=== PATIENT | male | born 2005 | race Caucasian/White ===

== ENCOUNTER 2024-05-23 08:46 | Inpatient (IN) | payer OTHER ==
[2024-05-23] VITALS (10 sets, daily range): BP systolic 130–143; BP diastolic 70–81; PULSE 96–108; RESP 18–24; TEMP 97.6–98.8; O2SAT 94–100
[~2024-05-23] VITALS: Ht 175.3 cm; Wt 89.8 kg
[2024-05-23] MEDS: SODIUM CHLORIDE 0.9% 1000ML 1,000 ML IV STA (10:30)
[2024-05-23] MEDS: SODIUM CHLORIDE 0.9% 1000ML 1,000 ML IV SCH ×2 (10:31→13:40)
[2024-05-23 10:36] LABS: BASOPHILS # (AUTO) 0.1 (0.0-0.1); BASOPHILS % 0.6 % (0.0-1.0); EOSINOPHILS # (AUTO) 0.4 (0.0-0.4); EOSINOPHILS % 3.3 % (0.0-6.0); HEMATOCRIT 40.7 % (38.2-49.6); HEMOGLOBIN 16.7 g/dL (14.0-18.0); LYMPHOCYTES # (AUTO) 2.1 (1.0-3.2); MEAN CORPUSCULAR HEMOGLOBIN 34.6 pg (28-32); MEAN CORPUSCULAR VOLUME 84.4 fL (81-99); MONOCYTES # (AUTO) 0.8 (0.2-0.8); MONOCYTES % 6.1 % (4.4-11.3); PLATELET COUNT 341 x10e3/uL (140-360); RED BLOOD COUNT 4.82 x10e6/uL (4.3-5.7); RED CELL DISTRIBUTION WIDTH 12.7 % (11.7-14.4); WHITE BLOOD COUNT 12.62 x10e3/uL (4.8-10.8)
[2024-05-23] MEDS ORDERED: IOPAMIDOL 370 MG/ML 100 ML INFUS..BTL INJ ONE (10:40)
[2024-05-23 11:00] LABS: INR 1.03; PROTHROMBIN TIME 14.2 seconds (11.9-14.5)
[2024-05-23] MEDS ORDERED: METHYLPREDNISOLONE SOD SUCC 125 MG/2ML VIAL ONE (11:22)
[2024-05-23] MEDS ORDERED: CEFTRIAXONE 1 GM VIAL ONE (11:22)
[2024-05-23] MEDS ORDERED: Azithromycin IV 500 MG 10 ML VIAL ONE (11:23)
[2024-05-23] MEDS ORDERED: SODIUM CHLORIDE 0.9% 250ML 250 ML ONE (11:24)
[2024-05-23] MEDS: METHYLPREDNISOLONE SOD SUCC 125 MG/2ML VIAL IV ONE (11:26)
[2024-05-23] MEDS: ALBUTEROL/IPRATROPIUM 3 ML NEB NEB SCH (11:27)
[2024-05-23] MEDS ORDERED: ACETAMINOPHEN 325 MG TAB PO PRN (12:15)
[2024-05-23] MEDS ORDERED: ONDANSETRON HCL INJ 2MG/ML 2ML 2 MG/ML VIAL IV PRN (12:15)
[2024-05-23] MEDS: METHYLPREDNISOLONE SOD SUCC 125 MG/2ML VIAL IV SCH (16:38)
[2024-05-24] VITALS (10 sets, daily range): BP systolic 130–154; BP diastolic 73–88; PULSE 79–101; RESP 17–23; TEMP 97.8–98.6; O2SAT 93–99
[2024-05-24 05:14] LABS: BASOPHILS % 0.3 % (0.0-1.0); HEMATOCRIT 37.9 % (38.2-49.6); HEMOGLOBIN 14.6 g/dL (14.0-18.0); LYMPHOCYTES # (AUTO) 1.6 (1.0-3.2); LYMPHOCYTES % 11.4 % (18.0-39.1); MEAN CORPUSCULAR HEMOGLOBIN 33.5 pg (28-32); MEAN CORPUSCULAR HGB CONC 38.5 g/dL (31-35); MEAN CORPUSCULAR VOLUME 86.9 fL (81-99); MONOCYTES # (AUTO) 0.5 (0.2-0.8); MONOCYTES % 3.3 % (4.4-11.3); NEUTROPHILS # (AUTO) 11.7 (2.1-6.9); NEUTROPHILS % 81.5 % (38.7-80.0); PLATELET COUNT 329 x10e3/uL (140-360); RED BLOOD COUNT 4.36 x10e6/uL (4.3-5.7); RED CELL DISTRIBUTION WIDTH 12.2 % (11.7-14.4); WHITE BLOOD COUNT 14.34 x10e3/uL (4.8-10.8)
[2024-05-24 05:46] LABS: CALCIUM 9.3 mg/dL (8.4-10.2); CREATININE, SERUM 0.75 mg/dL (0.72-1.25)
[2024-05-24] MEDS: IPRATROPIUM BROMIDE 0.02% 2.5 ML NEB NEB SCH (14:35)
[2024-05-24] MEDS: DOXYCYCLINE HYCLATE TABLET 100 MG TAB PO SCH (16:24)
[2024-05-24] MEDS: METHYLPREDNISOLONE SOD SUCC 40 MG/ML VIAL 1ML IV SCH (16:24)
[2024-05-25] VITALS (17 sets, daily range): BP systolic 124–146; BP diastolic 58–78; PULSE 68–100; RESP 18–22; TEMP 97.3–98.6; O2SAT 94–97
[2024-05-25 06:00] LABS: BASOPHILS # (AUTO) 0.1 (0.0-0.1); BASOPHILS % 0.3 % (0.0-1.0); HEMOGLOBIN 14.6 g/dL (14.0-18.0); LYMPHOCYTES # (AUTO) 2.5 (1.0-3.2); LYMPHOCYTES % 13.2 % (18.0-39.1); MEAN CORPUSCULAR HEMOGLOBIN 31.8 pg (28-32); MEAN CORPUSCULAR HGB CONC 35.6 g/dL (31-35); MEAN CORPUSCULAR VOLUME 89.3 fL (81-99); MONOCYTES # (AUTO) 0.9 (0.2-0.8); MONOCYTES % 4.6 % (4.4-11.3); NEUTROPHILS % 78.1 % (38.7-80.0); PLATELET COUNT 367 x10e3/uL (140-360); RED BLOOD COUNT 4.59 x10e6/uL (4.3-5.7); RED CELL DISTRIBUTION WIDTH 12.4 % (11.7-14.4); WHITE BLOOD COUNT 19.22 x10e3/uL (4.8-10.8)
[2024-05-25 06:36] LABS: HIV 1&2 AB SCREEN NON-REACTIVE (NONREACTIVE)
[2024-05-26] VITALS (10 sets, daily range): BP systolic 118–132; BP diastolic 69–86; PULSE 71–102; RESP 18–20; TEMP 97.7–98.6; O2SAT 92–100
[2024-05-26 05:53] LABS: BASOPHILS # (AUTO) 0.1 (0.0-0.1); BASOPHILS % 0.4 % (0.0-1.0); EOSINOPHILS % 0.1 % (0.0-6.0); HEMATOCRIT 44.6 % (38.2-49.6); LYMPHOCYTES # (AUTO) 4.1 (1.0-3.2); LYMPHOCYTES % 30.3 % (18.0-39.1); MEAN CORPUSCULAR HEMOGLOBIN 29.7 pg (28-32); MEAN CORPUSCULAR HGB CONC 33.6 g/dL (31-35); MEAN CORPUSCULAR VOLUME 88.3 fL (81-99); MONOCYTES # (AUTO) 0.8 (0.2-0.8); MONOCYTES % 6.1 % (4.4-11.3); NEUTROPHILS # (AUTO) 7.8 (2.1-6.9); NEUTROPHILS % 57.7 % (38.7-80.0); PLATELET COUNT 342 x10e3/uL (140-360); RED BLOOD COUNT 5.05 x10e6/uL (4.3-5.7); RED CELL DISTRIBUTION WIDTH 12.1 % (11.7-14.4); WHITE BLOOD COUNT 13.45 x10e3/uL (4.8-10.8)
[2024-05-26 06:31] LABS: CALCIUM 9.3 mg/dL (8.4-10.2); CREATININE, SERUM 0.84 mg/dL (0.72-1.25)
[2024-05-26] MEDS: METHYLPREDNISOLONE SOD SUCC 40 MG/ML VIAL 1ML IV SCH (09:04)
[2024-05-26] MEDS ORDERED: DOXYCYCLINE HY100 MG PO (11:50)
[2024-05-26] MEDS ORDERED: AMOX TR-K CLV1 EAC2 PO (11:55)
[2024-05-26] MEDS ORDERED: PREDNISONE20 MG PO (11:55)
[2024-05-26] MEDS ORDERED: VENTOLIN HFA18 GM INH (11:58)
[2024-05-26] MEDS ORDERED: ONDANSETRON HCL 4 MG ORAL DISINTEGRATING TAB PO PRN (13:45)
[2024-05-26] MEDS ORDERED: AMOXICILLIN/CLAVULANATE K 875 MG TAB PO SCH (21:00)
[2024-05-27] MEDS ORDERED: PREDNISONE 20 MG TAB PO SCH (09:00)
[2024-05-27 21:16] LABS: MYCOPLASMA PNEUMO IGG 616 U/mL (0-99)
[2024-06-09 07:19] LABS: CHLAMYDOPHILA PSITTACI IGM 1:32
[2024-06-09 07:20] LABS: CHLAMYDIA TRACHOMATIS IGM <1:10
== END 2024-05-26 14:00 | disposition home or self-care (01) | DRG 194 ==
LOC: FSED 08:50 → ERHOLD 11:46 → MED/SURG2 14:43
PROVIDERS: ADMIT Internal Medicine; ATTEND Internal Medicine
DX: J18.9 Pneumonia, unspecified organism (principal); J21.9 Acute bronchiolitis, unspecified; F90.9 Attention-deficit hyperactivity disorder, unspecified type; J45.909 Unspecified asthma, uncomplicated; R09.02 Hypoxemia; Z83.3 Family history of diabetes mellitus; Z82.49 Family history of ischemic heart disease and other diseases of the circulatory system
CPT/HCPCS: 0223U; 36415; 71045; 71260; 80048; 80053; 82948; 83605; 85025; 85610; 85730; 86039; 86631; 86738; 87040; 87070; 87205; 87390; 87400; 87420; 87536; 93005; 94640; 94760; 94799; 99284; G0433; G0435; J0696; J2405; J2919; J7030; J7050; Q9967